=== PATIENT | male | born 1995 | race Caucasian/White ===

== ENCOUNTER 2021-06-06 23:30 | Emergency (ER) | payer OTHER ==
[~2021-06-06] VITALS: Ht 177.8 cm; Wt 108.9 kg
[2021-06-06 23:30] VITALS: BP 160/77
--- NOTE | 2021-06-06 23:30 | NUR ---
VALERIE PEGUERO, PREBOOK. TAKEN TO CHAIR B
--- NOTE | 2021-06-07 01:02 | NUR ---
Dr. Deras examining patient.
[2021-06-07] MEDS ORDERED: ACETAMINOPHEN EXTRA STRENGTH 500 MG TAB PO ONE (01:15)
--- NOTE | 2021-06-07 01:33 | NUR ---
d/c with VSS. d/c to D officer [facility] [id number] custody.
== END 2021-06-07 01:33 ==
LOC: MED 23:30
DX: R07.9 Chest pain, unspecified (principal); F20.9 Schizophrenia, unspecified; Z02.89 Encounter for other administrative examinations
CPT/HCPCS: 99283